=== PATIENT | male | born 2000 | race Two or more races ===

== ENCOUNTER 2023-10-20 06:45 | Day surgery (SDC) | payer BC ==
[~2023-10-20] VITALS: Ht 193 cm; Wt 108.9 kg
[~2023-10-20 06:45] MED LIST: ceFAZolin 2 GM/D5W100ml 100 ML IV ONE
[2023-10-20] MEDS ORDERED: LIDOCAINE HCL (LOCAL ANESTH.) 0.5 % 50ML MDV IJ ONE (06:48)
[2023-10-20] MEDS ORDERED: LIDOCAINE W/ EPINEPHRINE 1% 20ML VIAL ONE (06:48)
[2023-10-20] MEDS ORDERED: EPINEPHrine HCL 1 MG/1 ML AMP ONE (06:49)
[2023-10-20] MEDS ORDERED: ACETAMINOPHEN IV 100 ML IV ONE (07:07)
[2023-10-20] MEDS ORDERED: GABAPENTIN 300 MG CAP ONE (07:07)
[2023-10-20] MEDS ORDERED: CELECOXIB 100 MG CAP ONE (07:07)
[2023-10-20] MEDS ORDERED: ACETAMINOPHEN IV 1000 MG/100ML (10MG/ML) IV ONE (07:15)
[2023-10-20] MEDS ORDERED: CELECOXIB 100 MG CAP PO ONE (07:15)
[2023-10-20] MEDS ORDERED: GABAPENTIN 300 MG CAP PO ONE (07:15)
[2023-10-20] MEDS ORDERED: ONDANSETRON HCL 4 MG/2 ML VIAL ONE (07:25)
[2023-10-20] MEDS ORDERED: DexAMETHasone SOD PHOS 10MG/1ML VIAL INJ ONE ×2 (07:25→07:30)
[2023-10-20] MEDS ORDERED: LIDOCAINE 2% (LOCAL ANESTH.) PF 5ml SDV ONE (07:25)
[2023-10-20] MEDS ORDERED: PROPOFOL 10 MG/ML 20 ML IV ONE ×2 (07:25→07:38)
[2023-10-20] MEDS ORDERED: KETOROLAC TROMETH 30 MG/ML 1ML VIAL ONE (07:25)
[2023-10-20] MEDS ORDERED: GLYCOPYRROLATE 0.2 MG/ML 1ML VIAL ONE (07:25)
[2023-10-20] MEDS ORDERED: ESMOLOL HCL 10 ML IV ONE (07:53)
[2023-10-20] MEDS ORDERED: fentaNYL CITRATE 100 MCG/2 ML VL ONE (08:01)
[2023-10-20] MEDS ORDERED: NEOMYCIN-BACITRACIN-POLYM 15GM TOP OINT TOP ONE (08:23)
[2023-10-20] MEDS ORDERED: MINERAL OIL TOPICAL 10ml TOP ONE (08:37)
[2023-10-20 09:13] VITALS: PULSE 90; RESP 19; O2SAT 96
[2023-10-20] MEDS ORDERED: FLUMAZENIL 0.1 MG/ML INJ 10ML MDV IV PRN (09:15)
[2023-10-20] MEDS ORDERED: oxyCODONE HCL 5MG TAB PO PRN (09:15)
[2023-10-20] MEDS ORDERED: fentaNYL CITRATE 100 MCG/2 ML VL IV PRN (09:15)
[2023-10-20] MEDS ORDERED: hydrALAZINE HCL 20 MG/ML VL IV PRN (09:15)
[2023-10-20] MEDS ORDERED: ePHEDrine SULFATE 50 MG/ML AMP IV PRN (09:15)
[2023-10-20] MEDS ORDERED: NALOXONE HCL 0.4 MG/ML VIAL IV PRN (09:15)
[2023-10-20] MEDS ORDERED: LABETALOL HCL 5 MG/ML 4ML SYRINGE IV PRN (09:15)
[2023-10-20] MEDS ORDERED: ONDANSETRON HCL 4 MG/2 ML VIAL IV PRN (09:15)
[2023-10-20] MEDS: HYDROmorphone HCL 2 MG/ML VL/or syr IV PRN ×3 (09:35→10:17)
[2023-10-20 10:45] VITALS: BP 131/76; PULSE 79; RESP 22; O2SAT 95
== END 2023-10-20 11:00 | disposition home or self-care (01) ==
LOC: SUR 06:45
PROVIDERS: ATTEND Orthopaedic Surgery
DX: S83.241A Other tear of medial meniscus, current injury, right knee, initial encounter (principal); S83.511A Sprain of anterior cruciate ligament of right knee, initial encounter; M67.51 Plica syndrome, right knee; M25.361 Other instability, right knee; W19.XXXA Unspecified fall, initial encounter; Y93.89 Activity, other specified; Y92.89 Other specified places as the place of occurrence of the external cause; Y99.8 Other external cause status
CPT/HCPCS: 29882; 29888; C1713; J0131; J0171; J1100; J1170; J1885; J2001; J2405; J2704; J3010